=== PATIENT | female | born 1965 | race Caucasian/White ===

== ENCOUNTER 2019-01-07 10:57 | Emergency (ER) | payer BC ==
[2019-01-07 12:24] VITALS: BP 139/93
[2019-01-07 12:35] LABS: Influenza A Molecular POSITIVE (Negative)
--- NOTE | 2019-01-07 12:38 | UC ---
FLU HPI - HPI Summary HPI Summary: Ill for 5 days with flu-like symptoms. Today she states she had a little burning on urination and would like that checked as well. - History of Current Complaint Chief Complaint: UCRespiratory Stated Complaint: COUGH,HEADACHE,BODY ACHES,URINARY Time Seen by Provider: 01/07/19 12:28 Hx Obtained From: Patient ?: No Onset/Duration: Gradual Onset Severity Currently: Mild Severity Initially: Moderate Pain Intensity: 0 Associated Signs & Symptoms: Positive: Fever, Myalgia - fever/headache and body aches are better today., Headache Related Hx: Possible Flu/Infectious Exposure - Numerous employess at work ill with the flu. - Allergy/Home Medications Allergies/Adverse Reactions: Allergies Allergy/AdvReac Type Severity Reaction Status Date / Time amoxicillin [From Augmentin] Allergy Severe Rash Verified 01/07/19 12:18 clavulanic acid Allergy Severe Rash Verified 01/07/19 12:18 [From Augmentin] meperidine [From Demerol] Allergy See Comment Verified 01/07/19 12:18 Home Medications: Home Medications Citalopram TAB* [Celexa TAB*] 1 tab DAILY 01/07/19 [History Confirmed 01/07/19] Hydrochlorothiazide TAB* [Hydrodiuril TAB*] 1 tab DAILY 01/07/19 [History Confirmed 01/07/19] PMH/Surg Hx/FS Hx/Imm Hx Previously Healthy: Yes - Surgical History Surgical History: Yes Surgery Procedure, Year, and Place: b/l ureter re-implanted d/t kidney reflux - Social History Occupation: Employed Full-time Lives: With Family Alcohol Use: None Substance Use Type: None Smoking Status (MU): Heavy Every Day Tobacco Smoker Type: Cigarettes Amount Used/How Often: 1 PPD Length of Time of Smoking/Using Tobacco: 30 YEARS Review of Systems All Other Systems Reviewed And Are Negative: Yes Constitutional: Positive: Fever, Chills - feeling better today Skin: Positive: Negative Eyes: Positive: Negative ENT: Positive: Nasal Discharge Respiratory: Positive: Cough - Occasional cough (smoker for 30 years) Better today, non-productive Cardiovascular: Positive: Negative Gastrointestinal: Positive: Negative Genitourinary: Positive: Dysuria - Very mild burning on urination a few times in the past day Motor: Positive: Negative Neurovascular: Positive: Negative Musculoskeletal: Positive: Negative Neurological: Positive: Negative Psychological: Positive: Negative Is Patient Immunocompromised?: No Physical Exam Triage Information Reviewed: Yes Appearance: Well-Appearing, No Pain Distress, Well-Nourished Vital Signs: Initial Vital Signs Temp 98 F 01/07/19 12:18 Pulse 82 01/07/19 12:18 Resp 20 01/07/19 12:18 BP 139/93 01/07/19 12:18 Pulse Ox 97 01/07/19 12:18 Vital Signs Reviewed: Yes Eye Exam: Normal ENT Exam: Normal Neck exam: Normal Respiratory: Positive: No respiratory distress, No accessory muscle use, Rhonchi - Scattered mild rhonchi and mild wheezes but no distress Cardiovascular Exam: Normal Musculoskeletal Exam: Normal Neurological Exam: Normal Psychological Exam: Normal Skin Exam: Normal Flu Course/Dx - Course Course Of Treatment: Comfortable here, feeling better since taking Theraflu the past few days. Flu test positive, urine with trace blood. - Differential Dx/Diagnosis Differential Diagnosis/HQI/PQRI: Influenza Provider Diagnosis: Influenza A Discharge - Sign-Out/Discharge Documenting (check all that apply): Patient Departure All imaging exams completed and their final reports reviewed: No Studies - Discharge Plan Condition: Fair Disposition: HOME Prescriptions: Albuterol HFA INHALER* [Ventolin HFA Inhaler*] 2 puff INH Q4H PRN 5 Days #1 mdi PRN Reason: Wheezing Patient Education Materials: Influenza (DC) Forms: *Work Release Referrals: Jenny Apodaca NP [Primary Care Provider] - Additional Instructions: Increase fluids. May continue Tylenol or Motrin as directed for fever. Definite follow up with your primary doctor if no improvement in 3-4 days. - Billing Disposition and Condition Condition: FAIR Disposition: Home - Attestation Statements Provider Attestation: Per institutional requirements, I have reviewed the chart, however, I was not consulted specifically or made aware of this patient by the midlevel provider. I did not personally evaluate, interact with , or disposition this patient.
== END 2019-01-07 12:48 | disposition home or self-care (01) ==
LOC: UCCORT 10:57
DX: J10.1 Influenza due to other identified influenza virus with other respiratory manifestations (principal); R39.89 Other symptoms and signs involving the genitourinary system; F17.210 Nicotine dependence, cigarettes, uncomplicated; Z88.0 Allergy status to penicillin; Z88.5 Allergy status to narcotic agent
CPT/HCPCS: 81003; 99202; G0463